=== PATIENT | female | born 1955 | race Caucasian/White ===

== ENCOUNTER → 2016-09-04 | Outpatient (CLI) | payer MEDICARE ==
[~2016-09-04] MED LIST: /ADVA50050; /OXCA30TA; ACET500C; AMBI5TAB; COLA100C2; HYDR25TA8; ISOVUE-370 76% 100ML VIAL (Q9967) As Ordered ONE; VALI5TAB
--- NOTE | 2016-09-05 00:21 | REP ---
Clinical: Right upper quadrant pain previously abnormal gallbladder ultrasound. Technique: Axial contrast enhanced images from the lung bases to the pubic symphysis using 100 ml Isovue 370 intravenous contrast material with precontrast images of the abdomen as well as coronal and sagittal re-formations. Comparison: 07/22/2016. Findings: Lung bases are clear. Visualized heart and pericardium normal. Liver, spleen, pancreas, gallbladder, bilateral adrenal glands and kidneys are normal. The enteric system is without obstruction or acute inflammatory process and a normal terminal ileum and appendix are identified in the right lower quadrant. Pelvis demonstrates normal bladder. Moderately prominent uterine vasculature is appreciated which is otherwise nonspecific and likely incidental. No pelvic fluid or ascites. No free air. No adenopathy. Abdominal aorta without aneurysm or dissection. Musculoskeletal structures are intact. Impression: 1. Essentially normal contrast enhanced CT of the abdomen and pelvis. 2. Specifically, normal gallbladder and biliary system by CT evaluation. 3. Moderately prominent uterine venous plexus is nonspecific and likely incidental. However if the patient demonstrates pelvic pain, pelvic congestion syndrome may be within differential. Signed by Brooks Gamez MD 09/05/2016 12:13 A
== END ==
LOC: M RAD 13:44
PROVIDERS: ATTEND Physician Assistant Medical
DX: R10.11 Right upper quadrant pain (principal); R11.0 Nausea; R93.3 Abnormal findings on diagnostic imaging of other parts of digestive tract
CPT/HCPCS: 74178; Q9967

== ENCOUNTER → 2016-09-26 | Outpatient (CLI) | payer MEDICARE, MEDICAID ==
[~2016-09-26] MED LIST changes: +ALBU17IN INH; +AMLO5TAB2 PO; +BENT20TA PO; -ISOVUE-370 76% 100ML VIAL (Q9967) As Ordered ONE; +PANT40TA2 PO; +PRAV40TA2 PO; +TIOT18INH INH; +TRAM50TA2 PO; +XANA1TAB2 PO; +ZYRT10CA PO
--- NOTE | 2016-09-26 23:52 | REP ---
Clinical: Cough. Technique: PA and lateral. Comparison: 11/11/2015. Findings: Mediastinum and cardiac silhouette are normal. Lung neal demonstrate chronic stable changes including few scattered calcified granulomata. Small noncalcified nodules cannot be excluded specifically in the right mid to lower lung zone. No obvious acute consolidation, effusion, or pneumothorax. Skeletal structures intact. Impression: Chronic stable changes. No acute consolidation. Subtle noncalcified nodular density in the right mid lower lung zone cannot be excluded. Consider chest CT for further investigation and follow-up. Signed by Brooks Gamez MD 09/26/2016 11:43 P
== END ==
LOC: M ED 20:38
PROVIDERS: ATTEND Internal Medicine Pulmonary Disease
DX: J43.2 Centrilobular emphysema (principal); R05 Cough; R06.00 Dyspnea, unspecified

== ENCOUNTER → 2016-10-12 | Outpatient (CLI) | payer MEDICARE ==
--- NOTE | 2016-10-12 11:59 | REP ---
CT of the chest without IV contrast: Comparison 03/27/2016. There are numerous tiny bulla scattered throughout the lung parenchyma bilaterally, most predominant in the upper lobes, compatible with the clinical history. The patient has known multiple lung nodules as follows: Image 17, left upper lobe, unchanged. Image 24, right upper lobe, unchanged. Image 27, left upper lobe, slightly increased. Image 33, right upper lobe, unchanged. Image 43 to nodules peripherally in the left upper lobe, decreased size. On the prior study there was also a nodule at this level in the left lower lobe, no longer present. On the prior study there was a nodule in the right middle lobe on image 46. This is no longer present. Image 49, right middle lobe, unchanged. Image 63, right lower lobe, small calcified granuloma, unchanged. Image 66, right lower lobe, calcified granuloma, unchanged. Images 71, right lower lobe, unchanged. No new nodules are identified. There are no acute infiltrates or effusions. There are calcified granulomas in the right hilus and subcarinal nodes, unchanged. Upper abdomen: The visualized portions of the unenhanced liver, pancreas, spleen, adrenals and renal upper poles are unremarkable and unchanged. Signed by Shiva Amaro MD 10/12/2016 11:50 A
== END ==
LOC: M RAD 10:42
PROVIDERS: ATTEND Internal Medicine Pulmonary Disease
DX: J43.2 Centrilobular emphysema (principal)

== ENCOUNTER → 2016-12-07 | Outpatient (CLI) | payer MEDICARE ==
[~2016-12-07] MED LIST changes: +ISOVUE-370 76% 100ML VIAL (Q9967) As Ordered ONE
--- NOTE | 2016-12-07 21:40 | REP ---
CT SOFT-TISSUE NECK WITH CONTRAST: 12/07/2016. Clinical history: Cervical lymphadenopathy. Technique: 75 ml of Isovue-370 given with scanning through the soft tissues of the neck with coronal and sagittal reconstructions. Comparison CT cervical spine 04/21/2013 reviewed. Findings: The skull base and bone windows were unremarkable as are the visualized mastoids and sinuses. The base of the brain intact. There is cervical spondylosis at C5-6, less at C4-5. Disc space narrowing only at C5-6 and this is mild. Loss of lordosis noted, but no anterolisthesis. Craniocervical junction intact. Dens intact. The mandible shows no fracture or focal lesion. Soft tissue windows show posterior and anterior cervical chain nodes enlarged on both sides of the neck, but more left than right and posterior chain nodes are seen up to 10 mm in short axis. Submandibular glands and parotid glands are symmetric. Airway intact. No prevertebral swelling. There is lucency at the base of the dens to the left and along left facets at C1-2. There is prominent soft tissue swelling anterior at this level. This is highly suspicious for neoplastic process but infection is not entirely excluded. There is no prevertebral swelling to narrow the airway. The lateral pharyngeal wall is slightly prominent. This is a distinct change from the CT of the cervical spine 04/21/2013. Two small cystic nodules in the thyroid lobes, one on each side. The lung apices show irregular nodule right upper lobe about 10 mm and left upper lobe about 8 mm. Impression: Anterior and posterior cervical chain adenopathy, left greater than right, with nodules in the lung apices of a suspicious nature and most likely metastatic lesion, less likely infection at base of the left side of the dens and into the facets of C2. No central canal stenosis or extension. No evidence for dens fracture. The adenopathy is more left than right and greater posterior than anterior. Signed by Niko Bañuelos MD 12/08/2016 08:06 P
== END ==
LOC: M RAD 17:24
PROVIDERS: ATTEND Internal Medicine Pulmonary Disease
DX: R59.0 Localized enlarged lymph nodes (principal)
CPT/HCPCS: 70491; Q9967

== ENCOUNTER 2016-12-15 15:09 | Inpatient (IN) | payer MEDICARE ==
[~2016-12-15] VITALS: Ht 154.9 cm; Wt 42.1 kg
[~2016-12-15 15:09] MED LIST changes: -ISOVUE-370 76% 100ML VIAL (Q9967) As Ordered ONE
[2016-12-15] MEDS ORDERED: TIOT18INH INH (15:29)
[2016-12-15] MEDS ORDERED: SIMBICORT (15:29)
[2016-12-15] MEDS ORDERED: XANA0.5T PO (15:29)
[2016-12-15] MEDS ORDERED: CYCL10TA PO (15:29)
[2016-12-15] MEDS ORDERED: PROMETHAZINE INJ 25 MG/ML VIAL (J2550) IM ONE (16:00)
[2016-12-15 16:11] LABS: BASO # 0.1 K/mm3 (0.0-0.2); BASO % 1.1 % (0.0-1.0); EOS # 0.4 K/mm3 (0.0-0.50); EOS % 5.7 % (0.0-3.0); LARGE UNSTAINED CELL # 0.1 K/mm3 (0.0-0.4); LARGE UNSTAINED CELL % 1.1 % (0.0-4.0); LYMPH # 1.7 K/mm3 (1.5-4.5); MEAN CORPUSCULAR HEMOGLOBIN 26.5 pg (27.0-33.0); MEAN CORPUSCULAR VOLUME 82.8 fl (80.0-96.0); MONO # 0.3 K/mm3 (0.0-0.8); MONO % 3.9 % (0.0-5.0); NEUTROPHILS % 62.3 % (36.0-66.0); PLATELET COUNT, AUTOMATED 387 k/mm3 (150-450); RED CELL DISTRIBUTION WIDTH 13.4 % (11.5-14.5); WHITE BLOOD COUNT 6.4 K/mm3 (4.0-10.0)
[2016-12-15] MEDS ORDERED: PERCOCET 5MG/325MG TAB PO ONE (17:00)
[2016-12-15 18:10] LABS: ALBUMIN 3.5 GM/DL (3.2-5.2); ALBUMIN/GLOBULIN RATIO 0.76 (1.00-1.93); ALKALINE PHOSPHATASE 263 U/L (45-117); ALT/SGPT 28 U/L (12-78); ANION GAP 7 MEQ/L (8-16); AST/SGOT 20 U/L (15-37); BILIRUBIN,DIRECT < 0.1 MG/DL (0.0-0.2); BILIRUBIN,TOTAL 0.2 MG/DL (0.2-1.0); BLOOD UREA NITROGEN 12 MG/DL (7-18); CALCIUM LEVEL 9.1 MG/DL (8.5-10.1); CARBON DIOXIDE LEVEL 30 MEQ/L (21-32); CHLORIDE LEVEL 102 MEQ/L (98-107); CREATININE FOR GFR 0.55 MG/DL (0.55-1.02); GLOMERULAR FILTRATION RATE > 60.0 (>51); GLUCOSE, FASTING 115 MG/DL (70-105); POTASSIUM SERUM 3.8 MEQ/L (3.5-5.1); SODIUM LEVEL 139 MEQ/L (136-145); TOTAL PROTEIN 8.1 GM/DL (6.4-8.2)
[2016-12-15 18:13] LABS: INR 0.93
[2016-12-15] MEDS ORDERED: TYLE650T35 PO (18:14)
[2016-12-15] MEDS ORDERED: SYMB16INH INH (18:14)
[2016-12-15] MEDS ORDERED: CYCLOBENZAPRINE 10 MG TAB PO PRN (19:15)
[2016-12-15] MEDS ORDERED: ACETAMINOPHEN 650MG ER TAB (TYLENOL ARTHRITIS) PO PRN (19:15)
[2016-12-15] MEDS ORDERED: traMADol 50 MG TAB PO PRN (19:15)
[2016-12-15] MEDS ORDERED: ALBUTEROL 90 MCG/ACT 8GM HFA INHALER INH PRN (19:15)
[2016-12-15 19:55] VITALS: BP 146/87
[2016-12-15] MEDS: ALPRAZolam 0.5 MG TAB PO PRN (20:05)
[2016-12-15] MEDS: PRAVASTATIN 20 MG TAB PO SCH (20:06)
--- NOTE | 2016-12-15 20:08 | HPEPDOC ---
Medical History and Physical Date of Admission Dec 15, 2016 at 18:41 History and Physical Primary care provider: Dr. Kelsey Walters Date of Admission: 12/15/2016 CHIEF COMPLAINT: For right arm, right hip, neck pain, left cervical lymphadenopathy HISTORY OF PRESENT ILLNESS: Apparently, she had noticed some left cervical lymphadenopathy for the past few months, she brought this up with her PCP, and it sounds like she was sent over to her application tester Dr. Walker for evaluation. A CT of the neck was performed last week which revealed cervical lymphadenopathy as well as a hypodense area in her cervical spine in the C1-C2 and dens. She had not been notified of these results until she came in the ED today. The reason why she came into the emergency room was because she has been having severe right arm, right hip, and left sided neck pain, and her daughter came over to visit her today and discovered that because of the pain she has been unable to move about her house very well for the past few weeks, and decided that it was enough and she was going to the emergency department for further evaluation. Upon arrival to the ED her tests from last week for reviewed, this was discussed with patient, and it was explained that her lesions are highly suspicious for malignancy. An x- ray of her right humerus was taken which revealed a pathological fracture, this was discussed with the orthopedic surgeon certified control systems technician who recommended placing her in a sling, and then the first thing that should be done is further evaluation into her cancer. Her right hip was not imaged because she did not mention this pain to the ED provider, I have now ordered this, but there are no results back yet. An MRI of her cervical spine has also been ordered, but there are no results available at the time of this dictation. The case has been discussed with Dr. Talamantes of oncology, and she has agreed to come and see and evaluate the patient. The patient denies any fevers, chills, night sweats, she does admit to a recent weight loss of approximately 25-30 pounds in one month. She admits to pain in her right hip, right arm, and left neck as described above. She has had some mild constipation, although she believes that this may be due to poor oral intake. She does have decreased appetite. She does not have any trouble chewing or swallowing food. She denies any chest discomfort, palpitations, shortness of breath, or cough, she denies any swelling or edema in her feet or the ankles, she denies orthopnea. She admits to some nausea secondary to the pain, but no vomiting. Mild constipation, no diarrhea. Other than the left-sided cervical lymphadenopathy, she has not noticed any additional lumps, bumps, or bruises that she cannot account for. She denies any numbness, tingling, weakness. She has suffered from anxiety for a long time, but otherwise denies any psychiatric history. ALLERGIES: Aspirin, azithromycin, gabapentin PAST MEDICAL HISTORY: Asthma COPD Emphysema Anxiety Fibromyalgia/chronic pain PTSD Hypertension Vitamin D deficiency Hypercholesterolemia PAST SURGICAL HISTORY: And tonsils and adenoids as a child Tubal ligation 1981 Exploratory laparoscopy for abdominal pain in 1982, apparently nothing discovered Lung biopsy approximately 3 years ago SOCIAL HISTORY: She has smoked one pack per day for approximately 45 years. She only rarely drinks alcohol now. She has not used any illicit drugs since 2008. 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 She lives at home alone, but she has family that checks in on her often, and the grandchildren visit as well. FAMILY HISTORY: She has one sister who had lung cancer with metastases to her brain in many parts of her body who at the age of 62. Both her mother and her sister had cervical cancer, her mother at the age of 71. She has one brother to to whom she is estranged and does not know his medical history. Father had a history of stroke, and diabetes, and of an [place] at the age of 70. She has 3 children, 2 girls and one boy. She states that one of her daughters had a large abdominal mass removed approximately [address] Alarcon, and they have not received the pathology report as of yet. REVIEW OF SYSTEMS: As listed in the HPI PHYSICAL EXAMINATION: Vitals: Temperature 99.3, pulse 114 regular, respiratory rate 18, blood pressure 141/84, pulse ox 96% on room air General: Sitting upright in the chair. She is visibly anxious, and she is in pain any time she attempts to move or reposition herself. HEENT: Head normocephalic atraumatic, pupils equally reactive to light and accommodation, conjunctiva are pink, sclera are nonicteric, buccal mucosa is pink and moist with no lesions in the oropharynx. Hearing is grossly intact to conversation. Multiple large cervical lymphadenopathy noted in the posterior chain on the left side. No Virchow's node is appreciated. Respiratory: Clear to auscultation bilaterally with no wheezes, rales, or rhonchi. Cardiovascular: Tachycardic rate, regular rhythm, with no rubs, gallops, or murmur. Abdomen: Soft, nontender, nondistended, no hepatosplenomegaly appreciated. Bowel sounds present. Extremities: 2+ pulses in the radial and dorsalis pedis bilaterally. No evidence of clubbing or cyanosis. Right arm is in a sling, it has pain with almost any movement. Her right hip is tender to palpation on both the greater trochanter and the iliac crest. ASSESSMENT/PLAN: 1. Left-sided cervical lymphadenopathy. I suspect that this is a metastasis, although the primary is unknown at this time. Case has been discussed with Dr. Talamantes of oncology, she agrees to see the patient in consult. She will need a lymph node biopsy for further evaluation, this will likely occur on Saturday. 2. Pathological fracture of right humerus. Arm is in a sling, and no further treatment will occur until a more definitive diagnosis regarding her cancer is established. Pain medication ordered. 3. Hypodense area in the dens, C1 and C2. MRI of the cervical spine pending. Once results are back from this, may need to discuss the case with neurosurgery. 4. Right hip pain. Xray of right hip pending. 5. Hx of multiple lung masses. Biopsy as well as bronchial lavage and bronchial brushing in 2013 revealed benign lung parenchyma. Masses have been followed, and has remained stable in size. Most recent chest CT performed 10/12 6. Anxiety, depression, PTSD. Continue home dose of Xanax 7. Fibromyalgia, chronic pain. Continue with home dose of tramadol, cyclobenzaprine, and we will add Percocet as well given her recent right humerus fracture 8. Hypertension, continue with home dose of amlodipine 9. Hyperlipidemia continue with home dose of pravastatin 10. Asthma, emphysema, COPD. Continue with home dose of albuterol, Symbicort, Spiriva, and cetirizine My preceptor for this patient encounter was physically present in the building during the encounter and was fully available. As needed, all aspects of the patient interview, examination, medical decision making process, and medical care plan development were reviewed and approved by the preceptor. Preceptor is aware and concurs with the plan as stated in the body of this note and will attest to such by his/her cosignature. Vital Signs included above in Physical Exam Laboratory Data Labs 24H Laboratory Tests 2 12/15/16 16:04: Aspartate Amino Transf (AST/SGOT) 20, Alanine Aminotransferase (ALT/SGPT) 28, Alkaline Phosphatase 263H, Total Bilirubin 0.2, Direct Bilirubin < 0.1, Albumin 3.5, Albumin/Globulin Ratio 0.76L, Anion Gap 7L, White Blood Count 6.4, Red Blood Count 4.85, Hemoglobin 12.9, Hematocrit 40.1, Mean Corpuscular Volume 82.8 , Mean Corpuscular Hemoglobin 26.5L, Mean Corpuscular Hemoglobin Concent 32.0, Red Cell Distribution Width 13.4, Platelet Count 387, Neutrophils (%) (Auto) 62.3, Lymphocytes (%) (Auto) 26.0, Monocytes (%) (Auto) 3.9, Eosinophils (%) ( Auto) 5.7H, Basophils (%) (Auto) 1.1H, Neutrophils # (Auto) 4.0, Lymphocytes # ( Auto) 1.7, Monocytes # (Auto) 0.3, Eosinophils # (Auto) 0.4, Basophils # (Auto) 0.1, Calcium Level 9.1, Erythrocyte Sedimentation Rate 63H, Glomerular Filtration Rate > 60.0, Large Unclassified Cells # 0.1, Large Unclassified Cells % 1.1, Total Protein 8.1 12/15/16 17:59: Prothromb Time International Ratio 0.93, Prothrombin Time 12.6 CBC/BMP Laboratory Tests 12/15/16 16:04 Red Blood Count 4.85, Mean Corpuscular Volume 82.8, Mean Corpuscular Hemoglobin 26.5 L, Mean Corpuscular Hemoglobin Concent 32.0, Red Cell Distribution Width 13.4, Neutrophils (%) (Auto) 62.3, Lymphocytes (%) (Auto) 26.0, Monocytes (%) ( Auto) 3.9, Eosinophils (%) (Auto) 5.7 H, Basophils (%) (Auto) 1.1 H, Neutrophils # (Auto) 4.0, Lymphocytes # (Auto) 1.7, Monocytes # (Auto) 0.3, Eosinophils # (Auto) 0.4, Basophils # (Auto) 0.1 Home Medications Scheduled Amlodipine Besylate (Amlodipine Besylate) 5 Mg Tab 5 MG PO DAILY Budesonide/Formoterol (Symbicort 160-4.5 Mcg/Act) 60 Puff/Inhaler Aers 2 PUFF INH BID Cetirizine HCl (Zyrtec Allergy) 10 Mg Cap 10 MG PO DAILY Pravastatin Sod (Pravastatin Sodium) 40 Mg Tab 40 MG PO QHS Tiotropium [place] Monohydrate (Spiriva Handihaler) 5 Inhalation/Inhaler Powd 1 INHALATION INH DAILY Scheduled PRN Acetaminophen (Tylenol 8 Hour Arthritis) 650 Mg Tab 650 MG PO TID PRN PRN PAIN Albuterol Sulfate (Ventolin Hfa) 200 Puff/8 Gm Aers 2 PUFF INH QID PRN PRN SHORTNESS OF BREATH Alprazolam (Xanax) 0.5 Mg Tab 0.5 MG PO QID PRN PRN ANXIETY Cyclobenzaprine HCl (Cyclobenzaprine HCl) 10 Mg Tab 10 MG PO TID PRN PRN MUSCLE SPASMS Tramadol HCl (Tramadol HCl) 50 Mg Tab 50 MG PO BID PRN PRN PAIN Allergies Coded Allergies: Aspirin (Verified Allergy, Intermediate, HIVES, 10/15/16) Azithromycin (Unverified Allergy, Intermediate, rash, 09/14/16) Gabapentin (Unverified Allergy, Intermediate, rash, 09/14/16) JACK NAIDU DO Dec 15, 2016 20:08
[2016-12-15] MEDS: SYMBICORT 160/4.5MCG INHALER 6GM INH SCH ×2 (21:00→23:38)
[2016-12-15] MEDS ORDERED: NICOTINE 14 MG/24 HR TRANSDERMAL TD SCH (21:00)
[2016-12-15] MEDS: PERCOCET 5MG/325MG TAB PO PRN (22:02)
--- NOTE | 2016-12-15 23:10 | REPUSA ---
CLINICAL HISTORY: Metastatic disease. TECHNIQUE: MRI of the cervical spine was performed utilizing multiple sequences in axial and sagitta l planes without and with IV contrast material. COMMENTS: There is heterogeneous marrow pattern noted with mass-like lesions seen throughout the vertebral bodi es compatible with known history of metastatic disease. There is heterogeneous enhancement noted. The visualized osseous elements are otherwise intact with no evidence of fracture or dislocation. Th e cervical cord is of normal uniform signal intensity without evidence of focal expansion. There is no evidence for tonsilar herniation. Limited views of the posterior fossa reveal no abnormalities. Multilevel dehydration and desiccation is seen. Evaluation of individual levels presents the following: At C2-C3, there is no disc herniation or bulge present. Canal and foramina are patent. At C3-C4, 1 mm bulge indents the ventral thecal sac. Canal and foramina are patent. At C4-C5, 1 mm bulge indents the ventral thecal sac. Canal and foramina are patent. At C5-C6, broad based herniated disc is seen, measures 16 x 2.5 mm, in contact with the cord. Canal is borderline stenotic. Both foramina are mildly narrowed. At C6-C7, 1 mm bulge is seen. Canal and foramina are patent. C7-T1 level is unremarkable. IMPRESSION: 1. There is heterogeneous marrow pattern noted with mass-like lesions seen throughout the vertebral b odies compatible with known history of metastatic disease. 2. At C3-C4, 1 mm bulge indents the ventral thecal sac. Canal and foramina are patent. 3. At C4-C5, 1 mm bulge indents the ventral thecal sac. Canal and foramina are patent. 4. At C5-C6, broad based herniated disc is seen, measures 16 x 2.5 mm, in contact with the cord. Can al is borderline stenotic. Both foramina are mildly narrowed. 5. At C6-C7, 1 mm bulge is seen. Canal and foramina are patent. Thank you for your kind referral of this patient. We appreciate the opportunity to participate in thi s patient's care.
[2016-12-16] MEDS: PERCOCET 5MG/325MG TAB PO PRN ×4 (02:49→18:22)
[2016-12-16 06:00] VITALS: BP 119/73
[2016-12-16 06:28] LABS: MEAN CORPUSCULAR HEMOGLOBIN 27.2 pg (27.0-33.0); MEAN CORPUSCULAR HGB CONC 33.3 g/dl (32.0-36.5); MEAN CORPUSCULAR VOLUME 81.7 fl (80.0-96.0); RED CELL DISTRIBUTION WIDTH 13.3 % (11.5-14.5); WHITE BLOOD COUNT 4.9 K/mm3 (4.0-10.0)
[2016-12-16 06:43] LABS: ANION GAP 5 MEQ/L (8-16); BLOOD UREA NITROGEN 12 MG/DL (7-18); CALCIUM LEVEL 9.1 MG/DL (8.5-10.1); CARBON DIOXIDE LEVEL 29 MEQ/L (21-32); CHLORIDE LEVEL 101 MEQ/L (98-107); CREATININE FOR GFR 0.48 MG/DL (0.55-1.02); GLOMERULAR FILTRATION RATE > 60.0 (>51); GLUCOSE, FASTING 101 MG/DL (70-105); POTASSIUM SERUM 3.6 MEQ/L (3.5-5.1); SODIUM LEVEL 135 MEQ/L (136-145)
[2016-12-16] MEDS: TIOTROPIUM INHALER/CAPSULE (SPIRIVA) INH SCH (07:47)
[2016-12-16] MEDS: SYMBICORT 160/4.5MCG INHALER 6GM INH SCH ×2 (07:47→19:30)
--- NOTE | 2016-12-16 08:26 | REP ---
TWO VIEWS OF THE RIGHT HUMERUS: REASON: Pain. There is a permeative pattern to the proximal right humerus and seen with a pathologic fracture. IMPRESSION: Pathologic proximal right humeral fracture. Metastatic disease versus primary. Signed by James Mcclain DO 12/16/2016 08:51 A
[2016-12-16] MEDS: CETIRIZINE (ZyrTEC) 10 MG TAB PO SCH (08:32)
[2016-12-16] MEDS: ALPRAZolam 0.5 MG TAB PO PRN (08:32)
--- NOTE | 2016-12-16 08:59 | REP ---
Pain, possible metastatic disease. COMPARISON: None. AP pelvis and two views of the right hip were obtained. AP pelvis was obtained with obliquity LPO. This limits the exam. There is no evidence of a pelvic fracture. The hip joint spaces are symmetric and relatively well-maintained. There is no acute fracture. Two views of the hip show no fracture or dislocation. There is no significant degenerative change and there is no buttressing. Signed by James Mcclain DO 12/16/2016 09:26 A
[2016-12-16] MEDS: amLODIPine 5 MG TAB PO SCH (09:57)
[2016-12-16] MEDS: MORPHINE 2 MG/ML 1ML SYRINGE IV PRN ×2 (09:58→22:27)
--- NOTE | 2016-12-16 11:49 | IPN ---
DATE OF SERVICE: 12/16/2016 A 61-year-old female admitted last evening due to generalized weakness, deconditioning, difficulty with ambulating, unsteady gait, pathologic fracture involving the right arm, and cervical involvement with what appears to be metastatic disease of unknown primary. She denies chest pain. She feels that her pain is a little better controlled this morning. No nausea or vomiting. She did attempt to eat some this morning, as well. She relates that she does have a 25-pound weight loss over the last few months and first noticed pain in her arm 3 weeks ago but was continuing to ignore this. OBJECTIVE: Temperature is 98.6, pulse 90, respiratory rate 18, blood pressure (BP) 119/73, SpO2 is 99% on room air. General: The patient appears to be in no acute distress. She is alert, pleasant. HEENT: Unremarkable. Lungs: Clear. Heart: Regular rate and rhythm. Abdomen: Soft. Continuous Miner Operator Helper strength is equal. She does have good sensation in the upper and lower extremities. Lower extremity showed no signs edema, no calf tenderness. LABORATORY DATA: White count 4.9, hemoglobin 11.6, platelets 323,000, sedimentation rate is 63. Sodium 135, potassium 3.6, chloride 101, bicarbonate 29, anion gap 5, BUN is 12, creatinine 0.48, glucose 101, magnesium 2.0, alkaline phosphatase on admission yesterday was 263. X-ray of the right humerus did demonstrated pathologic proximal right humeral fracture, metastatic disease versus primary. Pelvic x-ray: No evidence of fracture. No dislocation. MRI of the cervical spine: Heterogenous marrow pattern noted with mass-like lesion seen throughout the vertebral bodies compatible with possible history of metastatic disease. Disc bulges are noted at C3-4, C4-5, C5-6. She does have a herniated disc noted in contact with the cord. Borderline stenosis with foramina narrowing. C6-7 has a 1 mm disc bulge, as well, with canal and foramina patent. The other disc spaces and foramen do appear to be patent, as well, and the patient is maintained in a soft cervical collar ASSESSMENT AND PLAN: 1. Right shoulder pain with what appears to be a pathologic right humeral fracture. Continue with sling. Appreciate orthopedics input. Continue with pain medication. She likely needs a biopsy of the lesion in the neck. Likely, will need to be arranged tomorrow. 2. Left-sided cervical lymphadenopathy noted on admission. Unknown whether this is the primary or not. The case has been discussed with Dr. Talamantes, who will be seeing the patient on consult, and node biopsy will likely occur on Saturday. 3. Hypodense areas of the cervical spine. She does not have any gross impingement on the spinal cord. I did ask orthopedics to see her for her pathologic fracture, as well, as to see if any further intervention needs to be done beyond a soft cervical collar. We can consider neurosurgery if need be but will wait further guidance from orthopedics in the meantime. 4. Right hip pain. Negative x-ray. 5. Multiple lung masses per previous history. Most recent CT was done on 10/12/2016. The patient follows with Dr. Walker. She did have biopsy, as well as bronchial lavage, performed 2013 that revealed benign lung parenchyma. 6. Anxiety and depression with history of posttraumatic stress disorder (PTSD). Stable on Xanax. 7. Fibromyalgia and chronic pain. Continue on tramadol, Flexeril, Percocet as needed. I did add morphine for breakthrough pain due to her pathologic fracture and other issues, as well, a heating pad. 8. Hypertension. Stable on current dose of amlodipine. 9. Hyperlipidemia. Continue on pravastatin. 10. Underlying lung disease, possible chronic obstructive pulmonary disease (COPD), with history of tobacco use, which we encouraged smoking cessation. Continue on albuterol, Symbicort, and Spiriva. Cetirizine for allergies. 11. Deep venous thrombosis (DVT) prophylaxis with Lovenox. DISPOSITION: Unclear at this point. We do need to have a tissue biopsy to help determine what her primary cancer is and will need to have further staging. Appreciate assistance from orthopedics and oncology, and again will consider neurosurgical evaluation if orthopedics feels that that would be necessary. Currently, she is not demonstrating any motor or sensory deficits at bedside.
[2016-12-16] MEDS: LORazepam 1 MG TAB PO PRN (13:09)
[2016-12-16] MEDS: NICOTINE 21MG/24HR 1 EA TRANSDERMAL TD SCH (13:10)
[2016-12-16 14:00] VITALS: BP 133/84
--- NOTE | 2016-12-16 14:55 | CR.PDOC ---
[facility] Consultation Consultation DATE OF CONSULTATION: Dec 15, 2016 at 16:10 REFERRING PROVIDER: Dr. Ortega ATTENDING PHYSICIAN: Dr. Yaw Romeo REASON FOR CONSULTATION/CHIEF COMPLAINT: Pathologic right humerus fracture. HISTORY OF PRESENT ILLNESS: Patient is a 61 y/o RHD female with acute on chronic right arm and neck pain who presented to the [facility] ER yesterday for evaluation. She is a lifelong smoker, and has has 25 lb unintended weight loss over the last year. Patient with history of lung granulomatous disease that has been followed with periodic CT and biopsy, with no previous cancer diagnosis. Orthopedic surgery consulted for evaluation and management of her humerus and cervical spine lesions. ALLERGIES: Please see below. HOME MEDICATIONS: Please see below. PAST MEDICAL HISTORY: 1. lung disease per HPI. 2. fibromyalgia 3. hypercholesterolemia. PAST SURGICAL HISTORY: 1. And tonsils and adenoids as a child 2. Tubal ligation 1981 3. Exploratory laparoscopy for abdominal pain in 1982, apparently nothing discovered 4. Lung biopsy approximately 3 years ago FAMILY HISTORY: Siblings: sister who of lung cancer Children: 3 childern, currently healthy SOCIAL HISTORY: Marital status and/or living arrangements: lives alone in [place] Employment: unemployed Tobacco use:lifelong smoker REVIEW OF SYSTEMS: CONSTITUTIONAL: + 25 lb unintended weight loss per HPI. HEENT: + Neck pain per HPI. CARDIOVASCULAR: no chest pain, SOB. RESPIRATORY: + lung lesions per HPI, no cough, wheeze. GENITOURINARY: no pain or burning with urination. MUSCULOSKELETAL: + arm and neck pain per HPI. GASTROINTESTINAL: no nausea, vomiting, or diarrhea. NEUROLOGICAL: no seizures, headaches. PHYSICAL EXAMINATION: VITAL SIGNS: Please see below. GENERAL APPEARANCE: Cachetic woman, appears older than stated age, no acute distress. HEENT: tenderness over the midline of the cervical spine with some paraspinal tenderness. CARDIOVASCULAR: 2+ radial pulse RUE with brisk capillary refill to all digits RUE. EXTREMITIES: exam of the RUE demonstrates arm in sling. diffusely tender over the humerus. No pain about the elbow. NEUROLOGICAL: sensory/motor intact in RUE axillary, radial, median, ulnar, AIN, PIN distributions. LABORATORY DATA: Please see below. Plain radiographs of the right humerus demonstrate midshaft pathologic fracture with poorly defined sclerotic and lytic borders with periosteal reaction and moth eaten pattern throughout the cortex CT of the chest from oct 2016 demonstrates multiple small nodules in the lungs, some of which have changed in size, but no large single lesion CT of the abdomen/pelvis performed earlier this year demonstrates no evidence of primary lesion in the abdomen or pelvis MRI C-spine demonstrates evidence of multiple lesions in C2 and C7. No evidence of cord compromise ASSESSMENT/PLAN: 61 y/o female with a pathologic humerus fracture with unknown primary 1. Patient requires tissue diagnosis to confirm that this is metastatic lesion versus primary sarcoma. 2. Given family and smoking history, most likely lung primary. 3. Recommend continued workup of unknown primary 4. Will likely require surgical stabilization. Recommend referral to orthopedic oncologist for stabilization 5. Will continue to follow while in house Vital Signs/I&O Vital Signs Date Time Temp Pulse Resp B/P Pulse Ox O2 Delivery O2 Flow Rate FiO2 12/16/16 10:08 20 12/16/16 09:58 Room Air 12/16/16 09:57 90 130/60 12/16/16 06:00 98.6 99 I&O- Last 24 Hours up to 6 AM 12/16/16 06:00 Intake Total 480 ml Output Total 340 ml Balance 140 ml Laboratory Data Labs 24H Laboratory Tests 2 12/15/16 16:04: Aspartate Amino Transf (AST/SGOT) 20, Alanine Aminotransferase (ALT/SGPT) 28, Alkaline Phosphatase 263H, Total Bilirubin 0.2, Direct Bilirubin < 0.1, Albumin 3.5, Albumin/Globulin Ratio 0.76L, Anion Gap 7L, White Blood Count 6.4, Red Blood Count 4.85, Hemoglobin 12.9, Hematocrit 40.1, Mean Corpuscular Volume 82.8 , Mean Corpuscular Hemoglobin 26.5L, Mean Corpuscular Hemoglobin Concent 32.0, Red Cell Distribution Width 13.4, Platelet Count 387, Neutrophils (%) (Auto) 62.3, Lymphocytes (%) (Auto) 26.0, Monocytes (%) (Auto) 3.9, Eosinophils (%) ( Auto) 5.7H, Basophils (%) (Auto) 1.1H, Neutrophils # (Auto) 4.0, Lymphocytes # ( Auto) 1.7, Monocytes # (Auto) 0.3, Eosinophils # (Auto) 0.4, Basophils # (Auto) 0.1, Calcium Level 9.1, Erythrocyte Sedimentation Rate 63H, Glomerular Filtration Rate > 60.0, Large Unclassified Cells # 0.1, Large Unclassified Cells % 1.1, Total Protein 8.1 12/15/16 17:59: Prothromb Time International Ratio 0.93, Prothrombin Time 12.6 12/16/16 06:13: Anion Gap 5L, Calcium Level 9.1, Glomerular Filtration Rate > 60.0, Blood Urea Nitrogen 12, Creatinine 0.48L, Sodium Level 135L, Potassium Level 3.6, Chloride Level 101, Carbon Dioxide Level 29, Magnesium Level 2.0 CBC/BMP Laboratory Tests 12/15/16 16:04 Red Blood Count 4.85, Mean Corpuscular Volume 82.8, Mean Corpuscular Hemoglobin 26.5 L, Mean Corpuscular Hemoglobin Concent 32.0, Red Cell Distribution Width 13.4, Neutrophils (%) (Auto) 62.3, Lymphocytes (%) (Auto) 26.0, Monocytes (%) ( Auto) 3.9, Eosinophils (%) (Auto) 5.7 H, Basophils (%) (Auto) 1.1 H, Neutrophils # (Auto) 4.0, Lymphocytes # (Auto) 1.7, Monocytes # (Auto) 0.3, Eosinophils # (Auto) 0.4, Basophils # (Auto) 0.1 12/16/16 06:13 Red Blood Count 4.27, Mean Corpuscular Volume 81.7, Mean Corpuscular Hemoglobin 27.2, Mean Corpuscular Hemoglobin Concent 33.3, Red Cell Distribution Width 13.3 , Calcium Level 9.1 Allergies Coded Allergies: Aspirin (Verified Allergy, Intermediate, HIVES, 10/15/16) Azithromycin (Unverified Allergy, Intermediate, rash, 09/14/16) Gabapentin (Unverified Allergy, Intermediate, rash, 09/14/16) Home Medications Scheduled Amlodipine Besylate (Amlodipine Besylate) 5 Mg Tab 5 MG PO DAILY (Reported) Budesonide/Formoterol (Symbicort 160-4.5 Mcg/Act) 60 Puff/Inhaler Aers 2 PUFF INH BID (Reported) Cetirizine HCl (Zyrtec Allergy) 10 Mg Cap 10 MG PO DAILY (Reported) Pravastatin Sod (Pravastatin Sodium) 40 Mg Tab 40 MG PO QHS (Reported) Tiotropium Marcus Monohydrate (Spiriva Handihaler) 5 Inhalation/Inhaler Powd 1 INHALATION INH DAILY (Reported) Scheduled PRN Acetaminophen (Tylenol 8 Hour Arthritis) 650 Mg Tab 650 MG PO TID PRN PRN PAIN ( Reported) Albuterol Sulfate (Ventolin Hfa) 200 Puff/8 Gm Aers 2 PUFF INH QID PRN PRN SHORTNESS OF BREATH (Reported) Alprazolam (Xanax) 0.5 Mg Tab 0.5 MG PO QID PRN PRN ANXIETY (Reported) Cyclobenzaprine HCl (Cyclobenzaprine HCl) 10 Mg Tab 10 MG PO TID PRN PRN MUSCLE SPASMS (Reported) Tramadol HCl (Tramadol HCl) 50 Mg Tab 50 MG PO BID PRN PRN PAIN (Reported) FELICIA ROMEO MD Dec 16, 2016 12:11
[2016-12-16 22:00] VITALS: BP 126/72
[2016-12-16] MEDS: PRAVASTATIN 20 MG TAB PO SCH (22:27)
[2016-12-16] MEDS: ENOXAPARIN 40 MG/0.4 ML SYRINGE (J1650) SC SCH (22:28)
[2016-12-17] MEDS: PERCOCET 5MG/325MG TAB PO PRN ×3 (05:34→22:23)
[2016-12-17 06:00] VITALS: BP 115/76
[2016-12-17 07:19] LABS: MEAN CORPUSCULAR HEMOGLOBIN 26.1 pg (27.0-33.0); MEAN CORPUSCULAR HGB CONC 32.1 g/dl (32.0-36.5); MEAN CORPUSCULAR VOLUME 81.4 fl (80.0-96.0); RED CELL DISTRIBUTION WIDTH 13.5 % (11.5-14.5); WHITE BLOOD COUNT 7.7 K/mm3 (4.0-10.0)
[2016-12-17 07:43] LABS: ANION GAP 8 MEQ/L (8-16); BLOOD UREA NITROGEN 8 MG/DL (7-18); CALCIUM LEVEL 9.5 MG/DL (8.5-10.1); CARBON DIOXIDE LEVEL 28 MEQ/L (21-32); CHLORIDE LEVEL 100 MEQ/L (98-107); CREATININE FOR GFR 0.43 MG/DL (0.55-1.02); GLOMERULAR FILTRATION RATE > 60.0 (>51); GLUCOSE, FASTING 115 MG/DL (70-105); POTASSIUM SERUM 3.8 MEQ/L (3.5-5.1); SODIUM LEVEL 136 MEQ/L (136-145)
[2016-12-17] MEDS: SYMBICORT 160/4.5MCG INHALER 6GM INH SCH ×2 (08:27→21:01)
[2016-12-17] MEDS: TIOTROPIUM INHALER/CAPSULE (SPIRIVA) INH SCH (08:27)
[2016-12-17] MEDS: CETIRIZINE (ZyrTEC) 10 MG TAB PO SCH (08:47)
[2016-12-17] MEDS: NICOTINE 21MG/24HR 1 EA TRANSDERMAL TD SCH (08:47)
[2016-12-17] MEDS: amLODIPine 5 MG TAB PO SCH (08:47)
[2016-12-17] MEDS: ONDANSETRON 4MG/2ML VIAL (J2405) IV PRN ×2 (10:12→17:00)
[2016-12-17] MEDS: MORPHINE 2 MG/ML 1ML SYRINGE IV PRN (10:13)
[2016-12-17 14:00] VITALS: BP 138/83
--- NOTE | 2016-12-17 16:16 | IPNPDOC ---
Date Seen The patient was seen on 12/17/16. Progress Note Hospitalist Progress Note Subjective: Patient is very anxious, but other than the pain in her arm, she has no specific complaints. Objective: Physical Exam: Vitals: Vital Sign - Last 24 Hours 12/16/16 12/16/16 12/16/16 12/16/16 18:22 18:53 22:00 22:27 Temp 99.8 Pulse 94 Resp 20 20 20 18 B/P 126/72 Pulse Ox 99 O2 Delivery Room Air Room Air 12/17/16 12/17/16 12/17/16 12/17/16 05:34 06:00 08:47 10:13 Temp 98.3 Pulse 95 95 Resp 19 18 20 B/P 115/76 115/76 Pulse Ox 99 O2 Delivery Room Air 12/17/16 12/17/16 12/17/16 12/17/16 10:23 14:00 14:56 15:26 Temp 97.5 Pulse 99 Resp 20 20 18 18 B/P 138/83 Pulse Ox 96 O2 Delivery Room Air General: Awake, alert, no acute distress, quite cachectic HEENT: Normocephalic, atraumatic, extraocular movements intact, soft c-collar is in place CV: Regular rate and rhythm, no murmurs rubs or gallops Lungs: Clear to auscultation bilaterally Abd: Soft, nontender Extremities: No edema in the bilateral lower extremities, right arm is in a sling Neuro: Alert and oriented 3, normal speech Psych: Anxious Labs and Imaging: Laboratory Tests 12/17/16 07:05 Calcium Level 9.5, Red Blood Count 4.63, Mean Corpuscular Volume 81.4, Mean Corpuscular Hemoglobin 26.1 L, Mean Corpuscular Hemoglobin Concent 32.1, Red Cell Distribution Width 13.5 Assessment and Plan: 61-year-old female with COPD, anxiety, fibromyalgia/chronic pain, PTSD, hypertension, hyperlipidemia, vitamin D deficiency, known lung nodule for which she follows with Dr. Walker, who presented to the emergency department with severe weakness, 25 pound weight loss over the last 3 weeks, excruciating pain in her right arm, and lumps on her neck. She has been found to have a pathologic fracture of her right humerus, as well as left cervical lymphadenopathy, and a hypodense area in her upper C-spine. There is concern that the patient has some sort of malignancy. 1. Concern for malignancy: It is unclear at this time what the patient's primary is. I discussed the case with Dr. Talamantes, who will be coming to see the patient in consultation, and she has recommended a biopsy of the cervical lymphadenopathy, as well as a CT of the chest, abdomen, and pelvis. I have a call placed to Dr. Islas of interventional radiology to coordinate the biopsy. 2. Right humeral fracture: The patient has been seen by Dr. Arvizu of orthopedics. He will be following the patient while in house, and awaiting further workup of her primary malignancy. He has recommended that she will eventually need to to see an orthopedic oncologist for surgical stabilization of her humerus. At this time, the humerus is in a sling. Pain management with Percocet and as needed morphine. 3. Hypodense area of upper C-spine: The patient is currently wearing a soft c- collar. We will consider neurosurgical evaluation if orthopedics thinks this is necessary. 4. Known lung mass: The patient has followed with Dr. Walker for several years. Biopsy was completed in 2013 which showed benign lung parenchyma. However, given the patient's extensive smoking history, it is quite possible that long as her primary malignancy. 5. Anxiety and PTSD: Continue home Xanax 6. COPD: Continue home Spiriva, Zyrtec, Symbicort, and when necessary albuterol. 7. Fibromyalgia/chronic pain: Continue home tramadol, Flexeril. 8. Hypertension: Continue home Norvasc. 9. Hyperlipidemia: Continue home statin. DVT prophylaxis: Lovenox Dispo: pending further workup of primary malignancy VS, I&O, [facility] Vital Signs/I&O Vital Signs Date Time Temp Pulse Resp B/P Pulse Ox O2 Delivery O2 Flow Rate FiO2 12/17/16 15:26 18 12/17/16 14:00 97.5 99 138/83 96 Room Air I&O- Last 24 Hours up to 6 AM 12/17/16 06:00 Intake Total 600 ml Output Total 1150 ml Balance -550 ml Laboratory Data 24H LABS Laboratory Tests 2 12/17/16 07:05: Anion Gap 8, Blood Urea Nitrogen 8, Creatinine 0.43L, Sodium Level 136, Potassium Level 3.8, Chloride Level 100, Carbon Dioxide Level 28, Calcium Level 9.5, Glomerular Filtration Rate > 60.0 CBC/BMP Laboratory Tests 12/17/16 07:05 Calcium Level 9.5, Red Blood Count 4.63, Mean Corpuscular Volume 81.4, Mean Corpuscular Hemoglobin 26.1 L, Mean Corpuscular Hemoglobin Concent 32.1, Red Cell Distribution Width 13.5 ANTHONY SAMSON Dec 17, 2016 16:16
[2016-12-17] MEDS ORDERED: GASTROGRAFIN SOLUTION 30ML PO ONE (16:35)
[2016-12-17] MEDS ORDERED: GASTROGRAFIN SOLUTION 30ML (Q9963) PO ONE (17:05)
[2016-12-17] MEDS ORDERED: ISOVUE-370 76% 100ML VIAL (Q9967) As Ordered ONE (18:15)
--- NOTE | 2016-12-17 20:34 | REP ---
CT study of the chest with IV contrast: History: Assess for primary source, evidence of metastatic disease. Comparison CT study October 12, 2016 March 27, 2016. CT contrast dose: 100 ml of Isovue 370 is administered. There are areas of lytic bone destruction consistent with skeletal metastatic lesions involving the humeral head on the right, the body of the scapula on the right, the right pedicle and transverse process at T2, the left 2nd posterior and lateral rib segment. There is pretracheal malignant-appearing lymphadenopathy with two adjacent lymph nodes measuring 2.5 x 1.8 cm in aggregate dimension. There are other perivascular lymph nodes in the superior mediastinum. There is aortopulmonary window region mediastinal lymphadenopathy on the left measuring 2.9 x 2.3 x 2.5 cm. There is left hilar lymphadenopathy measuring 1.2 x 1.8 x 2.0 cm. No right hilar lymphadenopathy is appreciated. There is a spiculated 1.0 cm nodule in the left upper lobe. This appears a little larger than the March 27, 2016 study. There is a nonsolid nodule in the right upper lobe which appears somewhat smaller. It appears spiculated as well. There is a granulomatous calcification in the right lower lobe, unchanged and bilateral lower lobe linear discoid atelectatic changes are seen. No pleural or pericardial effusion is seen. No infiltrate is seen. There are several normal-size axillary lymph nodes bilaterally. Impression: Spiculated density left upper lobe and another spiculated density right upper lobe could be a primary lung malignancies. There is evidence of metastatic left hilar, left and superior mediastinal adenopathy, and several metastatic bony lesions are seen including the right scapula, the right humerus, T2, and the left second rib. The right scapular lesion should be a reasonable site to obtain percutaneous needle biopsy sample if desired. Signed by Todd Hinson MD 12/18/2016 03:35 P
--- NOTE | 2016-12-17 20:36 | REP ---
CT study of the abdomen and pelvis with IV and oral contrast: History: Metastatic malignancy, search for primary site. Comparison CT study is from [address] contrast dose: 100 ml of Isovue [address] findings: There is lytic bony destruction in the superior iliac crest on the right consistent with skeletal metastatic disease. There is another mixed predominantly lytic larger metastatic lesion in the right iliac bone adjacent to the SI joint. This lesion is approximately 4 cm in greatest anteroposterior dimension. There is also some early lytic destruction in the iliac bone on the right just above and posterior to the acetabulum. There is a 2 cm metastatic lesion here. No other bony metastatic lesion seen. The liver and the spleen are normal in size and homogeneous in texture. No adrenal lesion is seen on either side. The kidneys enhance symmetrically and are morphologically intact. No pancreatic mass lesion is seen. No retroperitoneal mass or adenopathy is observed. Normal caliber aorta is seen. The gallbladder is unremarkable. Small and large intestinal bowel loops are normal in appearance. Uterus is retroverted and tipped to the left at the time of today's CT study. No pelvic mass or adenopathy is seen. Impression: Skeletal metastatic lesions in the right pelvis including posterosuperior acetabular, right iliac SI joint level, and iliac crest lesions. No intra-abdominal or pelvic mass or adenopathy is seen. Signed by Todd Hinson MD 12/18/2016 03:35 P
[2016-12-17 22:00] VITALS: BP 136/76
[2016-12-17] MEDS: PRAVASTATIN 20 MG TAB PO SCH (22:13)
[2016-12-18 06:00] VITALS: BP 111/74
[2016-12-18 06:42] LABS: MEAN CORPUSCULAR HEMOGLOBIN 26.4 pg (27.0-33.0); MEAN CORPUSCULAR HGB CONC 32.1 g/dl (32.0-36.5); MEAN CORPUSCULAR VOLUME 82.3 fl (80.0-96.0); RED CELL DISTRIBUTION WIDTH 13.6 % (11.5-14.5); WHITE BLOOD COUNT 5.4 K/mm3 (4.0-10.0)
[2016-12-18 07:03] LABS: ANION GAP 10 MEQ/L (8-16); BLOOD UREA NITROGEN 11 MG/DL (7-18); CALCIUM LEVEL 8.8 MG/DL (8.5-10.1); CARBON DIOXIDE LEVEL 27 MEQ/L (21-32); CHLORIDE LEVEL 101 MEQ/L (98-107); CREATININE FOR GFR 0.54 MG/DL (0.55-1.02); GLOMERULAR FILTRATION RATE > 60.0 (>51); GLUCOSE, FASTING 108 MG/DL (70-105); MAGNESIUM LEVEL 2.2 MG/DL (1.8-2.4); POTASSIUM SERUM 3.8 MEQ/L (3.5-5.1); SODIUM LEVEL 138 MEQ/L (136-145)
[2016-12-18] MEDS: MORPHINE 2 MG/ML 1ML SYRINGE IV PRN (08:12)
[2016-12-18] MEDS: SYMBICORT 160/4.5MCG INHALER 6GM INH SCH ×2 (08:25→20:18)
[2016-12-18] MEDS: TIOTROPIUM INHALER/CAPSULE (SPIRIVA) INH SCH (08:25)
--- NOTE | 2016-12-18 12:44 | CR ---
DATE OF CONSULTATION: 12/18/2016 REASON FOR REFERRAL: Metastatic bone lesions on imaging studies with CT showing lung lesions, query bone metastases from primary lung cancer, for biopsy of bone lesions. HISTORY OF PRESENT ILLNESS: Mrs. Sanchez is a 61-year-old woman who is being followed up for lung lesions by Dr. Walker. She had fine-needle aspiration (FNA) and bronchial brushings back in 2013, which showed no evidence of primary lung malignancy. She is currently admitted as she has had worsening right arm pain, which started 2 months ago. A humeral x-ray showed a proximal right humeral fracture with metastatic disease versus a primary malignancy being considered. She had a CT of the chest, abdomen and pelvis, and this showed a left upper lobe lung lesion as well as the right upper lobe lesion with metastatic left hilar, left superior mediastinal adenopathy and several metastatic bony lesions including the right scapula, right humerus , T2 and the left second rib. An abdominal CT also showed lytic bone destruction in the superior iliac crest on the right and in the right iliac bone. She was referred to medical oncology for suspicion of malignancy. Symptom sarmiento, Mrs. Sanchez has been advised bedrest. She does feel generalized body weakness, but she feels that she could get up and walk to the bathroom. She is currently on analgesics for her bone pain. She is awaiting a biopsy of a scapular lesion. She reports weight loss over the past 2 months. She has also had a poor appetite. She has had constipation/scanty stool output. She has had no significant urinary problems. She reports that she has been having headaches lately. PAST MEDICAL HISTORY: 1. Chronic obstructive pulmonary disease (COPD). 2. Fibromyalgia. ALLERGIES: ASPIRIN, AZITHROMYCIN and GABAPENTIN. FAMILY HISTORY: Her sister of lung cancer. PERSONAL AND SOCIAL HISTORY: She is . She is a smoker of at least 45 years up to 1 pack per day. She has three grown children. She is currently on disability and has not had a job since 2004. On physical exam, she was lying comfortably on bed, not in distress. She had pinkish conjunctivae, anicteric sclerae. She had slightly dry oral mucosa. She had a cervical collar in place. She had cervical lymphadenopathy more prominent on the left. She had a sling on the right arm. Lungs fair entry. No rales, rhonchi. No wheeze. S1, S2, regular. Abdomen was soft, nontender, no guarding. Positive bowel sounds. Extremities - no calf swelling, no calf tenderness and no pedal edema. No clubbing. No cyanosis. IMPRESSION/PLAN: Mrs. Sanchez is a 61-year-old woman with imaging studies showing lung lesions, hilar lymphadenopathy as well as lytic bone lesions. She is awaiting a biopsy of a scapular lesion. I recommend radiation oncology consult. I also discussed with Mrs. Sanchez that we have to wait for the biopsy results before we can outline further treatment options. She would need orthopedic followup for definitive management of her humeral fracture as well as her cervical lesions. As mentioned above, management options will be outlined once we have the biopsy results available. Thank you for this referral.
[2016-12-18] MEDS ORDERED: LORazepam 2 MG/ML VIAL (J2060) IV ONE (12:45)
[2016-12-18] MEDS ORDERED: LIDOCAINE 1% MDV 20ML VIAL As Ordered ONE (13:12)
[2016-12-18 14:00] VITALS: BP_SYST 129; BP_SYST 138; BP_DIAS 65; BP_DIAS 72
[2016-12-18] MEDS: CETIRIZINE (ZyrTEC) 10 MG TAB PO SCH (14:09)
[2016-12-18] MEDS: NICOTINE 21MG/24HR 1 EA TRANSDERMAL TD SCH (14:10)
[2016-12-18] MEDS: PERCOCET 5MG/325MG TAB PO PRN ×2 (14:20→18:09)
[2016-12-18] MEDS: amLODIPine 5 MG TAB PO SCH (14:21)
--- NOTE | 2016-12-18 16:42 | REP ---
ULTRASOUND GUIDED RIGHT SCAPULA BIOPSY: The procedure was performed under the direct supervision of Dr. Hinson. The patient has a history of multiple skeletal metastatic lesions seen on a previous CT scan dated 12/17/2016. The risks and benefits of the procedure were explained to the patient and informed consent was obtained. A lesion in the right scapula was localized using ultrasound guidance. The skin was prepped and draped in a sterile fashion. 1% Xylocaine was used as a local anesthetic. Using ultrasound guidance, a 19/20-gauge coaxial needle biopsy system was inserted and advanced into the lesion. Six core biopsy samples were obtained and sent to the lab. The patient tolerated the procedure well and there were no immediate complications. Reviewed by LUIS EDUARDO Bassett 12/18/2016 04:54 PEdited and Signed by Todd Hinson MD 12/18/2016 05:10 P
--- NOTE | 2016-12-18 17:14 | IPNPDOC ---
Date Seen The patient was seen on 12/18/16. Progress Note Hospitalist Progress Note Subjective: Patient is very anxious, but other than the pain in her arm, she has no specific complaints. She is really hoping she will be able to go home soon. Objective: Physical Exam: Vitals: Vital Sign - Last 24 Hours 12/17/16 12/17/16 12/18/16 12/18/16 22:00 22:23 06:00 08:12 Temp 99.1 98.6 Pulse 92 88 Resp 20 18 18 18 B/P 136/76 111/74 Pulse Ox 95 98 O2 Delivery Room Air Room Air 12/18/16 12/18/16 12/18/16 12/18/16 08:22 09:00 14:00 14:20 Temp 99.0 Pulse 111 Resp 18 19 18 B/P 129/65 Pulse Ox 95 O2 Delivery Room Air Room Air Room Air Room Air 12/18/16 12/18/16 14:21 14:50 Pulse 107 Resp 18 B/P 129/65 O2 Delivery Room Air General: Awake, alert, no acute distress, quite cachectic HEENT: Normocephalic, atraumatic, extraocular movements intact, soft c-collar is in place CV: Regular rate and rhythm Lungs: Clear to auscultation bilaterally, no wheeze Abd: Soft, nontender Extremities: No edema in the bilateral lower extremities, right arm is in a sling Neuro: Alert and oriented 3, normal speech Psych: Anxious Labs and Imaging: Laboratory Tests 12/18/16 06:26 Calcium Level 8.8, Red Blood Count 4.71, Mean Corpuscular Volume 82.3, Mean Corpuscular Hemoglobin 26.4 L, Mean Corpuscular Hemoglobin Concent 32.1, Red Cell Distribution Width 13.6 Assessment and Plan: 61-year-old female with COPD, anxiety, fibromyalgia/chronic pain, PTSD, hypertension, hyperlipidemia, vitamin D deficiency, known lung nodule for which she follows with Dr. Walker, who presented to the emergency department with severe weakness, 25 pound weight loss over the last 3 weeks, excruciating pain in her right arm, and lumps on her neck. She has been found to have a pathologic fracture of her right humerus, as well as left cervical lymphadenopathy, and a hypodense area in her upper C-spine. There is concern that the patient has some sort of malignancy. 1. Concern for malignancy: It is unclear at this time what the patient's primary is. I discussed the case with Dr. Talamantes, who is seeing the patient in consultation. Biopsy was completed today; pathology is pending. Dr. Talamantes is recommending outpatient radiation oncology follow up, in addition to the patient 's follow up with her, upon discharge. 2. Right humeral fracture: The patient has been seen by Dr. Arvizu of orthopedics. I discussed the case with him, and he feels that it is not safe for her to be discharged home at this time as she is at risk of breaking another significant bone. Rather, he feels it is most appropriate for the patient to be transferred to [place] for orthopedic oncology services to stabilize some of her mets prior to discharge home. At this time, the humerus is in a sling. Pain management with Percocet and as needed morphine. 3. Hypodense area of upper C-spine; concern for mets: The patient is currently wearing a soft c-collar. 4. Known lung mass: The patient has followed with Dr. Walker for several years. Biopsy was completed in 2013 which showed benign lung parenchyma. However, given the patient's extensive smoking history, it is quite possible that lung as her primary malignancy. Imaging shows new LAD in her chest. Await path results. 5. Anxiety and PTSD: Continue home benzo. 6. COPD: Continue home Spiriva, Zyrtec, Symbicort, and when necessary albuterol. 7. Fibromyalgia/chronic pain: Continue home tramadol, Flexeril. 8. Hypertension: Continue home Norvasc. 9. Hyperlipidemia: Continue home statin. DVT prophylaxis: Lovenox Dispo: pursue transfer to [place] for orthopedic oncology services; per Dr. Talamantes, the patient can follow up the final path results with her in the office VS, I&O, 24H, Fishbone Vital Signs/I&O Vital Signs Date Time Temp Pulse Resp B/P Pulse Ox O2 Delivery O2 Flow Rate FiO2 12/18/16 14:50 18 Room Air 12/18/16 14:21 107 129/65 12/18/16 14:00 99.0 95 I&O- Last 24 Hours up to 6 AM 12/18/16 06:00 Intake Total 1200 ml Output Total 575 ml Balance 625 ml Laboratory Data 24H LABS Laboratory Tests 2 12/18/16 06:26: Anion Gap 10, Blood Urea Nitrogen 11, Creatinine 0.54L, Sodium Level 138, Potassium Level 3.8, Chloride Level 101, Carbon Dioxide Level 27, Calcium Level 8.8, Glomerular Filtration Rate > 60.0, Magnesium Level 2.2 CBC/BMP Laboratory Tests 12/18/16 06:26 Calcium Level 8.8, Red Blood Count 4.71, Mean Corpuscular Volume 82.3, Mean Corpuscular Hemoglobin 26.4 L, Mean Corpuscular Hemoglobin Concent 32.1, Red Cell Distribution Width 13.6 ANTHONY SAMSON Dec 18, 2016 17:14
[2016-12-18] MEDS: LORazepam 1 MG TAB PO PRN (19:50)
[2016-12-18] MEDS: PRAVASTATIN 20 MG TAB PO SCH (19:56)
[2016-12-18] MEDS: ENOXAPARIN 40 MG/0.4 ML SYRINGE (J1650) SC SCH (19:56)
[2016-12-18 22:00] VITALS: BP 134/80
[2016-12-19 06:00] VITALS: BP 130/79
[2016-12-19 06:56] LABS: MEAN CORPUSCULAR HGB CONC 33.2 g/dl (32.0-36.5); MEAN CORPUSCULAR VOLUME 81.4 fl (80.0-96.0); RED CELL DISTRIBUTION WIDTH 13.7 % (11.5-14.5); WHITE BLOOD COUNT 6.4 K/mm3 (4.0-10.0)
[2016-12-19 07:16] LABS: ANION GAP 8 MEQ/L (8-16); BLOOD UREA NITROGEN 10 MG/DL (7-18); CALCIUM LEVEL 8.9 MG/DL (8.5-10.1); CARBON DIOXIDE LEVEL 28 MEQ/L (21-32); CHLORIDE LEVEL 99 MEQ/L (98-107); CREATININE FOR GFR 0.45 MG/DL (0.55-1.02); GLOMERULAR FILTRATION RATE > 60.0 (>51); GLUCOSE, FASTING 111 MG/DL (70-105); POTASSIUM SERUM 3.6 MEQ/L (3.5-5.1); SODIUM LEVEL 135 MEQ/L (136-145)
[2016-12-19] MEDS: TIOTROPIUM INHALER/CAPSULE (SPIRIVA) INH SCH (07:41)
[2016-12-19] MEDS: SYMBICORT 160/4.5MCG INHALER 6GM INH SCH ×2 (07:42→21:47)
[2016-12-19 09:04] VITALS: BP 124/71
[2016-12-19] MEDS: NICOTINE 21MG/24HR 1 EA TRANSDERMAL TD SCH (09:04)
[2016-12-19] MEDS: CETIRIZINE (ZyrTEC) 10 MG TAB PO SCH (09:04)
[2016-12-19] MEDS: amLODIPine 5 MG TAB PO SCH (09:04)
[2016-12-19] MEDS: PERCOCET 5MG/325MG TAB PO PRN ×3 (09:05→18:07)
[2016-12-19] MEDS: LORazepam 1 MG TAB PO PRN ×2 (13:12→19:29)
[2016-12-19 14:00] VITALS: BP 113/77
--- NOTE | 2016-12-19 16:02 | IPNPDOC ---
Date Seen The patient was seen on 12/19/16. Progress Note Hospitalist Progress Note Subjective: Patient states her pain is pretty well controlled, but she continues to be anxious Objective: Physical Exam: Vitals: Vital Sign - Last 24 Hours 12/18/16 12/18/16 12/19/16 12/19/16 18:09 22:00 06:00 09:00 Temp 98.6 97.8 Pulse 96 90 Resp 18 20 20 B/P 134/80 130/79 Pulse Ox 98 97 O2 Delivery Room Air 12/19/16 12/19/16 12/19/16 12/19/16 09:04 09:05 09:35 13:12 Pulse 95 Resp 18 16 18 B/P 124/71 O2 Delivery Room Air Room Air Room Air 12/19/16 12/19/16 13:42 14:00 Temp 98.0 Pulse 114 Resp 18 18 B/P 113/77 Pulse Ox 95 O2 Delivery Room Air Room Air General: Awake, alert, no acute distress, quite cachectic HEENT: Normocephalic, atraumatic, extraocular movements intact, soft c-collar is in place CV: Regular rate and rhythm Lungs: Clear to auscultation bilaterally, no wheeze Abd: Soft, nontender Extremities: No edema in the bilateral lower extremities, right arm is in a sling Neuro: Alert and oriented 3, normal speech Psych: Anxious Labs and Imaging: Laboratory Tests 12/19/16 06:40 Calcium Level 8.9, Red Blood Count 4.51, Mean Corpuscular Volume 81.4, Mean Corpuscular Hemoglobin 27.0, Mean Corpuscular Hemoglobin Concent 33.2, Red Cell Distribution Width 13.7 Assessment and Plan: 61-year-old female with COPD, anxiety, fibromyalgia/chronic pain, PTSD, hypertension, hyperlipidemia, vitamin D deficiency, known lung nodule for which she follows with Dr. Walker, who presented to the emergency department with severe weakness, 25 pound weight loss over the last 3 weeks, excruciating pain in her right arm, and lumps on her neck. She has been found to have a pathologic fracture of her right humerus, as well as left cervical lymphadenopathy, and a hypodense area in her upper C-spine. It appears that she has a malignancy that has metastisized, however, the primary is still pending. 1. Concern for malignancy: It is unclear at this time what the patient's primary is. I discussed the case with Dr. Talamantes, who is seeing the patient in consultation. Biopsy was completed 12/18; pathology is pending. Dr. Talamantes is recommending outpatient palliative radiation oncology follow up for pain control , in addition to the patient's follow up with her, upon discharge. 2. Right humeral fracture: The patient has been seen by Dr. Arvizu of orthopedics. I discussed the case with him, and he feels that it is not safe for her to be discharged home at this time as she is at risk of breaking another significant bone. Rather, he feels it is most appropriate for the patient to be transferred to [place] for orthopedic oncology services to stabilize some of her mets prior to discharge home. At this time, the humerus is in a sling. Pain management with Percocet and as needed morphine. 3. Hypodense area of upper C-spine; concern for mets: The patient is currently wearing a soft c-collar. 4. Known lung mass: The patient has followed with Dr. Walker for several years. Biopsy was completed in 2013 which showed benign lung parenchyma. However, given the patient's extensive smoking history, it is quite possible that lung as her primary malignancy. Imaging shows new LAD in her chest. Await path results. 5. Anxiety and PTSD: Continue home benzo. 6. COPD: Continue home Spiriva, Zyrtec, Symbicort, and when necessary albuterol. 7. Fibromyalgia/chronic pain: Continue home tramadol, Flexeril. 8. Hypertension: Continue home Norvasc. 9. Hyperlipidemia: Continue home statin. DVT prophylaxis: Lovenox Dispo: Patient is declining transfer to [place] for ortho oncology consult and stabilization of bones. She has a good grasp of her situation and expresses understanding that some of her bones--including her right hip--are so brittle that they could break without any impetus. She would like to go home with hospice tomorrow and pursue palliative radiation for pain control. As her path results are still pending, she will have an appt with Dr. Talamantes to get these results. I had an extensive discussion with the patient and son and daughter today regarding these options and her prognosis. Total time spent at bedside exceeded 90 minutes. VS, I&O, 24H, Fishbone Vital Signs/I&O Vital Signs Date Time Temp Pulse Resp B/P Pulse Ox O2 Delivery O2 Flow Rate FiO2 12/19/16 14:00 98.0 114 18 113/77 95 Room Air I&O- Last 24 Hours up to 6 AM 12/19/16 06:00 Intake Total 660 ml Output Total 500 ml Balance 160 ml Laboratory Data 24H LABS Laboratory Tests 2 12/19/16 06:40: Anion Gap 8, Blood Urea Nitrogen 10, Creatinine 0.45L, Sodium Level 135L, Potassium Level 3.6, Chloride Level 99, Carbon Dioxide Level 28, Calcium Level 8.9, Glomerular Filtration Rate > 60.0, Magnesium Level 2.0 CBC/BMP Laboratory Tests 12/19/16 06:40 Calcium Level 8.9, Red Blood Count 4.51, Mean Corpuscular Volume 81.4, Mean Corpuscular Hemoglobin 27.0, Mean Corpuscular Hemoglobin Concent 33.2, Red Cell Distribution Width 13.7 ANTHONY SAMSON Dec 19, 2016 16:02
[2016-12-19] MEDS: ENOXAPARIN 40 MG/0.4 ML SYRINGE (J1650) SC SCH (21:14)
[2016-12-19] MEDS: PRAVASTATIN 20 MG TAB PO SCH (21:15)
[2016-12-19 22:00] VITALS: BP 124/76
[2016-12-20] MEDS: PERCOCET 5MG/325MG TAB PO PRN ×3 (00:09→12:50)
[2016-12-20 06:00] VITALS: BP 122/79
[2016-12-20 06:31] LABS: MEAN CORPUSCULAR HEMOGLOBIN 26.3 pg (27.0-33.0); MEAN CORPUSCULAR HGB CONC 32.1 g/dl (32.0-36.5); MEAN CORPUSCULAR VOLUME 81.9 fl (80.0-96.0); RED CELL DISTRIBUTION WIDTH 13.7 % (11.5-14.5); WHITE BLOOD COUNT 6.2 K/mm3 (4.0-10.0)
[2016-12-20 06:39] LABS: ANION GAP 7 MEQ/L (8-16); BLOOD UREA NITROGEN 12 MG/DL (7-18); CALCIUM LEVEL 8.7 MG/DL (8.5-10.1); CARBON DIOXIDE LEVEL 27 MEQ/L (21-32); CHLORIDE LEVEL 102 MEQ/L (98-107); CREATININE FOR GFR 0.42 MG/DL (0.55-1.02); GLOMERULAR FILTRATION RATE > 60.0 (>51); GLUCOSE, FASTING 104 MG/DL (70-105); MAGNESIUM LEVEL 1.9 MG/DL (1.8-2.4); POTASSIUM SERUM 3.4 MEQ/L (3.5-5.1); SODIUM LEVEL 136 MEQ/L (136-145)
[2016-12-20] MEDS ORDERED: POTASSIUM CHLORIDE 10 MEQ SR TABLET PO ONE (08:00)
[2016-12-20] MEDS: CETIRIZINE (ZyrTEC) 10 MG TAB PO SCH (08:20)
[2016-12-20] MEDS: amLODIPine 5 MG TAB PO SCH (08:20)
[2016-12-20] MEDS: NICOTINE 21MG/24HR 1 EA TRANSDERMAL TD SCH (08:20)
[2016-12-20] MEDS: TIOTROPIUM INHALER/CAPSULE (SPIRIVA) INH SCH (08:50)
[2016-12-20] MEDS: SYMBICORT 160/4.5MCG INHALER 6GM INH SCH (08:50)
[2016-12-20] MEDS: LORazepam 1 MG TAB PO PRN (12:52)
[2016-12-20] MEDS ORDERED: ATIV1TAB7 PO (14:20)
[2016-12-20] MEDS ORDERED: PERCOCET PO (14:20)
--- NOTE | 2016-12-20 14:37 | DS.PDOC ---
Discharge Summary General Date of Admission Dec 15, 2016 at 18:41 Date of Discharge 12/20/2016 Discharge Summary DATE OF ADMISSION: 12/15/2016 DATE OF DISCHARGE: 12/20/2016 PRIMARY CARE PHYSICIAN: Dr. Horan DISCHARGE DIAGNOS(E)S: Metastatic lung cancer Pathologic humerus fracture HPI & HOSPITAL COURSE: 61-year-old female with COPD, anxiety, fibromyalgia/chronic pain, PTSD, hypertension, hyperlipidemia, vitamin D deficiency, known benign lung nodule for which she follows with Dr. Walker, who presented to the emergency department with severe weakness, 25 pound weight loss over the last 3 weeks, excruciating pain in her right arm, and lumps on her neck. She has been found to have a pathologic fracture of her right humerus, as well as left cervical lymphadenopathy, and a hypodense area in her upper C-spine. It appears that she has metastatic lung cancer. 1. Metastatic lung cancer: I discussed the case with Dr. Talamantes, who is seeing the patient in consultation. Biopsy was completed 12/18; pathology is back but molecular testing is still pending. Dr. Talamantes is recommending outpatient palliative radiation oncology follow up for pain control, in addition to the patient's follow up with her, upon discharge. 2. Right humeral fracture, pathologic from mets: The patient has been seen by Dr. Arvizu of orthopedics. I discussed the case with him, and he feels that it is not safe for her to be discharged home at this time as she is at risk of breaking another significant bone. Rather, he feels it is most appropriate for the patient to be transferred to [place] for orthopedic oncology services to stabilize some of her mets prior to discharge home. This has all been explained to her and she expressed good understanding of how susceptible she is to a bone fracture even without any inciting trauma. She is declining transfer to [place] and has chosen to go home with hospice and accept the risk that she may suffer another large fracture. At this time, the humerus is in a brace. Pain management with Percocet. The patient will follow up with Dr. Orlando. 3. Hypodense area of upper C-spine; concern for mets: The patient is currently wearing a soft c-collar. 4. Anxiety and PTSD: Continue benzo. 5. COPD: Continue home Spiriva, Zyrtec, Symbicort, and when necessary albuterol. 6. Fibromyalgia/chronic pain: Continue home tramadol, Flexeril. 7. Hypertension: Continue home Norvasc. 8. Hyperlipidemia: Continue home statin. DVT prophylaxis: Lovenox Dispo: Patient is declining transfer to [place] for ortho oncology consult and stabilization of bones. She has a good grasp of her situation and expresses understanding that some of her bones--including her right hip--are so brittle that they could break without any impetus. She would like to go home with hospice and pursue palliative radiation for pain control. As her path results are still pending, she will have an appt with Dr. Talamantes to get these results. Dr. Erasto Walker will follow her as her hospice physician. PHYSICAL EXAMINATION ON DISCHARGE: VITAL SIGNS: Vital Signs Date Time Temp Pulse Resp B/P Pulse Ox O2 Delivery O2 Flow Rate FiO2 12/20/16 12:50 18 12/20/16 07:40 Room Air 12/20/16 06:00 98.3 97 122/79 97 General: Awake, alert, no acute distress, quite cachectic HEENT: Normocephalic, atraumatic, extraocular movements intact, soft c-collar is in place CV: Regular rate and rhythm Lungs: Clear to auscultation bilaterally, no wheeze Abd: Soft, nontender Extremities: No edema in the bilateral lower extremities, right arm is in a brace Neuro: Alert and oriented 3, normal speech Psych: less anxious than the past several days DISPOSITION: Home with home hospice DISCHARGE INSTRUCTIONS: Follow-up with Dr. Talamantes within one week Follow-up with Dr. Orlando within one week Dr. Erasto Walker will follow her as her hospice physician. If symptoms return, or if you experience worsening of your symptoms, please call your doctor or return to the emergency department. ITEMS THAT NEED OUTPATIENT FOLLOWUP: Final pathology report to be followed up with Dr. Talamantes Palliative radiation, which Dr. Talamantes will help arrange Patient was seen and examined by me on the day of discharge, and I spent a total time of greater than 30 minutes on this discharge. Vital Signs/I&Os Vital Signs Date Time Temp Pulse Resp B/P Pulse Ox O2 Delivery O2 Flow Rate FiO2 12/20/16 12:50 18 12/20/16 07:40 Room Air 12/20/16 06:00 98.3 97 122/79 97 I&O- Last 24 Hours up to 6 AM 12/20/16 06:00 Intake Total 1440 ml Output Total 900 ml Balance 540 ml Laboratory Data Labs 24H Laboratory Tests 2 12/20/16 06:06: Anion Gap 7L, Blood Urea Nitrogen 12, Creatinine 0.42L, Sodium Level 136, Potassium Level 3.4L, Chloride Level 102, Carbon Dioxide Level 27, Calcium Level 8.7, Glomerular Filtration Rate > 60.0, Magnesium Level 1.9 CBC/BMP Laboratory Tests 12/20/16 06:06 Calcium Level 8.7, Red Blood Count 4.41, Mean Corpuscular Volume 81.9, Mean Corpuscular Hemoglobin 26.3 L, Mean Corpuscular Hemoglobin Concent 32.1, Red Cell Distribution Width 13.7 Discharge Medications Scheduled Amlodipine Besylate (Amlodipine Besylate) 5 Mg Tab 5 MG PO DAILY (Reported) Budesonide/Formoterol (Symbicort 160-4.5 Mcg/Act) 60 Puff/Inhaler Aers 2 PUFF INH BID (Reported) Cetirizine HCl (Zyrtec Allergy) 10 Mg Cap 10 MG PO DAILY (Reported) Pravastatin Sod (Pravastatin Sodium) 40 Mg Tab 40 MG PO QHS (Reported) Tiotropium [place] Monohydrate (Spiriva Handihaler) 5 Inhalation/Inhaler Powd 1 INHALATION INH DAILY (Reported) Scheduled PRN Albuterol Sulfate (Ventolin Hfa) 200 Puff/8 Gm Aers 2 PUFF INH QID PRN PRN SHORTNESS OF BREATH (Reported) Cyclobenzaprine HCl (Cyclobenzaprine HCl) 10 Mg Tab 10 MG PO TID PRN PRN MUSCLE SPASMS (Reported) Lorazepam (Ativan) 1 Mg Tab 1 MG PO BIDP PRN PRN ANXIETY Oxycodone/Acetaminophen (Percocet 5MG/325MG Tablet) 1 Tab Tab 1-2 TAB PO Q4HP PRN PRN PAIN Tramadol HCl (Tramadol HCl) 50 Mg Tab 50 MG PO BID PRN PRN PAIN (Reported) Allergies Coded Allergies: Aspirin (Verified Allergy, Intermediate, HIVES, 10/15/16) Azithromycin (Unverified Allergy, Intermediate, rash, 09/14/16) Gabapentin (Unverified Allergy, Intermediate, rash, 09/14/16) ANTHONY SAMSON Dec 20, 2016 14:36
== END 2016-12-20 15:00 | disposition hospice, home (50) | DRG 166 ==
LOC: M ED 16:10 → M ED INP 18:41 → M MSPAV 19:45
PROVIDERS: ADMIT Internal Medicine; ATTEND Hospitalist
PROC: 0PB53ZX Excision of Right Scapula, Percutaneous Approach, Diagnostic (ICD-10-PCS; principal; 2016-12-18)
DX: C34.92 Malignant neoplasm of unspecified part of left bronchus or lung (principal); E43 Unspecified severe protein-calorie malnutrition; M84.421A Pathological fracture, right humerus, initial encounter for fracture; C79.51 Secondary malignant neoplasm of bone; F41.9 Anxiety disorder, unspecified; F43.10 Post-traumatic stress disorder, unspecified; J44.9 Chronic obstructive pulmonary disease, unspecified; E55.9 Vitamin D deficiency, unspecified; F17.210 Nicotine dependence, cigarettes, uncomplicated; J45.909 Unspecified asthma, uncomplicated; I10 Essential (primary) hypertension; E78.5 Hyperlipidemia, unspecified; M79.7 Fibromyalgia; Z79.899 Other long term (current) drug therapy; Z88.1 Allergy status to other antibiotic agents; Z88.6 Allergy status to analgesic agent; Z88.8 Allergy status to other drugs, medicaments and biological substances; Z98.51 Tubal ligation status; Z83.3 Family history of diabetes mellitus; Z80.1 Family history of malignant neoplasm of trachea, bronchus and lung; Z80.49 Family history of malignant neoplasm of other genital organs; Z82.3 Family history of stroke